=== PATIENT | male | born 1960 | race Caucasian/White ===

== ENCOUNTER 2025-02-25 09:31 | Emergency (ER) | payer SELFPAY ==
[~2025-02-25] VITALS: Ht 177.8 cm; Wt 70.0 kg
[2025-02-25 09:33] VITALS: TEMP 36.8; O2SAT 98
[2025-02-25 10:14] LABS: CREATININE 0.5 mg/dL (0.6-1.3); UREA NITROGEN BLOOD < 5 mg/dL (9-23)
[2025-02-25 11:19] VITALS: BP 127/92; PULSE 79; RESP 16; O2SAT 98
== END 2025-02-25 11:20 | disposition home or self-care (01) ==
LOC: EDBD → ER 09:31 → CANBEDREQ 10:35 → ER 11:20
DX: F10.129 Alcohol abuse with intoxication, unspecified (principal); I51.7 Cardiomegaly; I67.82 Cerebral ischemia; Y90.8 Blood alcohol level of 240 mg/100 ml or more
CPT/HCPCS: 36415; 71045; 80048; 80320; 99284; G0480

== ENCOUNTER 2025-02-26 01:45 | Inpatient (IN) | payer OTHER ==
[~2025-02-26] VITALS: Ht 167.6 cm; Wt 56.7 kg
[2025-02-26] MEDS ORDERED: TETANUS, DIPHTHERIA, PERTUSSIS VAC/PF 0.5ML (>10YR OLD) IM ONE (02:15)
[2025-02-26 02:17] VITALS: O2SAT 98
[2025-02-26 04:29] LABS: BASOPHILS % 0.7 % (0.0-2.0); EOSINOPHILS % 3.4 % (0.0-5.0); HEMATOCRIT. 35.9 % (42.0-52.0); HEMOGLOBIN. 12.3 g/dL (14.0-18.0); LYMPHOCYTES % 31.9 % (20.0-50.0); MONOCYTES % 10.1 % (2.0-8.0); NEUTROPHILS % 53.9 % (40.0-76.0); RED BLOOD CELL COUNT 3.85 mill/uL (4.7-6.1); RED CELL DISTRIBUTION WIDTH 13.7 % (11.6-14.6)
[2025-02-26] MEDS ORDERED: LORAZEPAM 2MG/ML UD SYRINGE IM NR (06:00)
[2025-02-26] MEDS ORDERED: HALOPERIDOL LACTATE 5MG/ML VIAL IM NR (06:00)
[2025-02-26] MEDS: TETANUS, DIPHTHERIA, PERTUSSIS VAC/PF 0.5ML (>10YR OLD) IM ONE (06:15)
[2025-02-26 07:29] LABS: MEAN PLATELET VOLUME 8.7 fl (7.4-10.4); PLATELET 258 x1000/uL (130-400)
[2025-02-26] MEDS: FLUORESCEIN SODIUM 1MG/STRIP LEFTEYE ONE (07:37)
[2025-02-26] MEDS: TETRACAINE 0.5% OPHTH DROPS 4ML LEFTEYE ONE (07:38)
[2025-02-26] MEDS: BACITRACIN ZINC OINT UDPKT TOP NR (07:38)
[2025-02-26] MEDS: CEFAZOLIN 1000MG PREMIX 50 ML IV NR ×2 (07:38→16:02)
[2025-02-26] MEDS ORDERED: GUAIFENESIN 200MG/10ML SUGAR FREE UDC PO PRN (07:45)
[2025-02-26] MEDS ORDERED: LORAZEPAM 2MG/ML UD SYRINGE IV PRN ×4 (07:45→11:30)
[2025-02-26] MEDS ORDERED: DOCUSATE SODIUM 100MG CAPSULE PO PRN (07:45)
[2025-02-26] MEDS ORDERED: CLONIDINE 0.1MG TABLET PO PRN (07:45)
[2025-02-26] MEDS ORDERED: IPRATROPIUM/ALBUTEROL 0.5-3(2.5)MG/3ML NEB HHN PRN (07:45)
[2025-02-26] MEDS ORDERED: ACETAMINOPHEN 325MG TABLET PO PRN ×2 (07:45)
[2025-02-26] MEDS ORDERED: ONDANSETRON HCL 4MG/2ML INJ IV PRN (07:45)
[2025-02-26] MEDS: LORAZEPAM 2MG/ML UD SYRINGE IM SCH (08:11)
[2025-02-26] MEDS ORDERED: LORAZEPAM 2MG/ML UD SYRINGE IM PRN ×2 (08:30→11:30)
[2025-02-26] MEDS: THIAMINE HCL 100 MG/1 ML 2ML VIAL IM SCH (09:00)
[2025-02-26] MEDS ORDERED: LIDOCAINE HCL 1% 10 MG/ML 10ML VIAL ONE (09:31)
[2025-02-26 09:47] VITALS: BP 114/70; PULSE 95; RESP 18; TEMP 35.9732
[2025-02-26 09:48] VITALS: BP 114/70; PULSE 97; RESP 18; TEMP 35.9; O2SAT 96
[2025-02-26] MEDS: MULTIVITAMINS,THER W-MINERALS TABLET PO SCH (11:28)
[2025-02-26] MEDS: FOLIC ACID 1MG TABLET PO SCH (11:28)
[2025-02-26 12:00] VITALS: BP 137/75; PULSE 96; RESP 16; TEMP 35.8; O2SAT 97
[2025-02-26] MEDS: MUPIROCIN 2% OINT 22GM TOP SCH (14:50)
[2025-02-26] MEDS: CHLORDIAZEPOXIDE 25MG CAPSULE PO SCH (14:50)
[2025-02-26] MEDS: MVI, ADULT NO.1 10 ML, FOLIC ACID 1 MG, THIAMINE HCL 100 MG in SODIUM CHLORIDE 0.9% 1,0... IV SCH (14:51)
[2025-02-26 16:00] VITALS: BP 133/91; PULSE 99; RESP 16; TEMP 36; O2SAT 96
[2025-02-26 17:18] LABS: INR 1.0
[2025-02-26 17:28] LABS: CREATININE 0.4 mg/dL (0.6-1.3)
[2025-02-26 17:29] LABS: TROPONIN I HIGH SENSITIVITY 7 ng/L (3.0-53); UREA NITROGEN BLOOD < 5 mg/dL (9-23)
[2025-02-26 17:30] LABS: ASPARTATE AMINOTRANSFERASE 30 IU/L (<34)
[2025-02-26 17:31] LABS: BILIRUBIN DIRECT 0.2 mg/dL (<=3.0); BILIRUBIN TOTAL 0.5 mg/dL (0.1-1.0); PROTEIN TOTAL 6.9 g/dL (6.0-8.3)
[2025-02-26 17:33] LABS: FOLIC ACID (FOLATE) SERUM > 20.00 ng/mL (>5.38); VITAMIN B12 SERUM 423 pg/mL (211-911)
[2025-02-26 20:00] VITALS: BP 131/83; PULSE 107; RESP 18; TEMP 36.7; O2SAT 100
[2025-02-27] VITALS: BP 105/60; PULSE 111; RESP 18; TEMP 36.2; O2SAT 100
[2025-02-27 01:48] LABS: CREATINE KINASE MB FRACTION 3.0 ng/mL (0.5-3.6); TROPONIN I HIGH SENSITIVITY 7.0 ng/L (3.0-53)
[2025-02-27 04:00] VITALS: BP 118/68; PULSE 119; RESP 18; TEMP 36.2; O2SAT 98
[2025-02-27 07:32] LABS: BASOPHILS % 0.6 % (0.0-2.0); EOSINOPHILS % 1.3 % (0.0-5.0); HEMATOCRIT. 35.6 % (42.0-52.0); HEMOGLOBIN. 11.9 g/dL (14.0-18.0); LYMPHOCYTES % 21.5 % (20.0-50.0); MEAN PLATELET VOLUME 9.2 fl (7.4-10.4); MONOCYTES % 9.6 % (2.0-8.0); NEUTROPHILS % 67.0 % (40.0-76.0); PLATELET 210 x1000/uL (130-400); RED BLOOD CELL COUNT 3.76 mill/uL (4.7-6.1); RED CELL DISTRIBUTION WIDTH 14.1 % (11.6-14.6)
[2025-02-27 07:47] LABS: CREATININE 0.5 mg/dL (0.6-1.3); TRIGLYCERIDE 49 mg/dL (0-150)
[2025-02-27 07:48] LABS: LDL CHOLESTEROL 39 mg/dL (5-100); UREA NITROGEN BLOOD < 5 mg/dL (9-23)
[2025-02-27 07:50] LABS: T4 FREE 1.06 ng/dL (0.89-1.76)
[2025-02-27 08:00] VITALS: BP 119/70; PULSE 113; RESP 16; TEMP 36.3; O2SAT 96
[2025-02-27 12:00] VITALS: BP 117/72; PULSE 107; RESP 18; TEMP 36.3; O2SAT 95
[2025-02-27] MEDS: CHLORDIAZEPOXIDE 10MG CAPSULE PO SCH (13:48)
[2025-02-27 14:16] VITALS: BP 117/72; PULSE 107; RESP 18; TEMP 97.3
[2025-02-28] MEDS ORDERED: THIAMINE HCL 100MG TABLET PO SCH (09:00)
== END 2025-02-27 16:10 | disposition short-term general hospital (02) | DRG 115 ==
LOC: ER 01:45 → EDBD 06:00 → 6WST 06:00 → EDBEDREQTM 06:24 → EDBEDREQ 06:24 → ENRESERV 08:06
PROVIDERS: ADMIT Internal Medicine; ATTEND Internal Medicine
PROC: 02HV33Z Insertion of Infusion Device into Superior Vena Cava, Percutaneous Approach (ICD-10-PCS; principal; 2025-02-26)
PROC: B548ZZA Ultrasonography of Superior Vena Cava, Guidance (ICD-10-PCS; 2025-02-26)
DX: S02.2XXA Fracture of nasal bones, initial encounter for closed fracture (principal); S05.72XA Avulsion of left eye, initial encounter; S91.302A Unspecified open wound, left foot, initial encounter; Z59.00 Homelessness unspecified; Z78.1 Physical restraint status; D53.9 Nutritional anemia, unspecified; S01.412A Laceration without foreign body of left cheek and temporomandibular area, initial encounter; F10.229 Alcohol dependence with intoxication, unspecified; Y90.8 Blood alcohol level of 240 mg/100 ml or more; S01.112A Laceration without foreign body of left eyelid and periocular area, initial encounter; W18.39XA Other fall on same level, initial encounter; Y93.89 Activity, other specified; Y92.89 Other specified places as the place of occurrence of the external cause; Y99.8 Other external cause status
CPT/HCPCS: 36415; 36573; 70486; 71045; 73060; 80048; 80061; 80076; 80320; 82550; 82553; 82607; 82746; 83880; 84439; 84443; 84484; 85025; 85044; 90715; 94640; 99285; C1725; J0690; J2003; J2060; J3411; J3490; J7030; G0480